=== PATIENT | male | born 1970 | race Caucasian/White ===

== ENCOUNTER 2019-11-16 13:29 | Emergency (ER) | payer MEDICAID, OTHER ==
[~2019-11-16] VITALS: Ht 170.2 cm; Wt 107.0 kg
[2019-11-16 13:33] VITALS: BP 154/89
[2019-11-16] MEDS ORDERED: DICYCLOMINE HCL LIQUID 10 MG/5 ML UDC PO ONE (13:40)
[2019-11-16] MEDS ORDERED: ALUMINUM HYD/MAG/SIMETHICONE 30 ML UDC PO ONE (13:40)
[2019-11-16] MEDS ORDERED: LIDOCAINE VISCOUS 2% 20 ML UDC PO ONE (13:40)
--- NOTE | 2019-11-16 14:01 | NUR ---
49 Y/O MALE C/O EPIGASTRIC PAIN THAT BEGAN TODAY. C/O NAUSEA, DENIES ANY VOMITING OR DIARRHEA. DENIES ANY CHEST PAIN, SOB/ COUGH. AFEBRILE AT THIS TIME. AAOX4. BOWEL SOUNDS NORMOACTIVE. ABD SOFT/ROUND/NON DISTENDED. BOWEL SOUNDS NORMOACTIVE.
[2019-11-16] MEDS ORDERED: ONDANSETRON 4 MG ODT PO ONE ×2 (14:05→15:20)
[2019-11-16] MEDS ORDERED: MORPHINE SULFATE 4 MG/ML SYR IM ONE (15:15)
[2019-11-16] MEDS ORDERED: IBUPROFEN 600 MG TAB PO ONE (15:15)
--- NOTE | 2019-11-16 15:15 | NUR ---
PT BEGAN HAVING MULTIPLE EPISODES OF EMESIS AND C/O ABD PAIN. ERMD MADE AWARE.
[2019-11-16] MEDS ORDERED: KETOROLAC 30 MG/ML VIAL IM ONE (15:20)
[2019-11-16 16:13] VITALS: BP 142/78
--- NOTE | 2019-11-16 16:13 | NUR ---
Patient discharged with v/s stable. Written and verbal after care instructions given and explained. Patient alert, oriented and verbalized understanding of instructions. Ambulatory with steady gait. All questions addressed prior to discharge. ID band removed. Patient advised to follow up with PMD. Rx of NORCO, CIPROFLOXACIN, ZOFRAN given. Patient educated on indication of medication including possible reaction and side effects. Opportunity to ask questions provided and answered.
== END 2019-11-16 16:13 | disposition home or self-care (01) ==
LOC: MED 13:29
DX: N50.9 Disorder of male genital organs, unspecified (principal); R11.10 Vomiting, unspecified
CPT/HCPCS: 76870; 93005; 96372; 99284; J1885; J2270; Q0092; Q0162